=== PATIENT | female | born 1955 | race Caucasian/White ===

== ENCOUNTER 2016-12-10 08:11 | Observation (INO) | payer BC ==
[~2016-12-10 08:11] MED LIST: ceFAZolin 3 GM in D5W 100 ML IV ONE
[2016-12-10] MEDS ORDERED: THROMBIN (RECOMBINANT) 20,000 UNIT SPRAY TP ONE (08:39)
[2016-12-10] MEDS ORDERED: BUPIVACAINE 0.5% 30 ML SDV ONE (08:39)
[2016-12-10] MEDS ORDERED: MINERAL OIL 10 ML VIAL TP ONE (08:39)
[2016-12-10] MEDS ORDERED: CEFAZOLIN 2 GM/DEXTROSE/100 ML BAG IV ONE (08:57)
[2016-12-10] MEDS ORDERED: MIDAZOLAM 2 MG/2 ML VIAL ONE (10:07)
[2016-12-10] MEDS ORDERED: fentaNYL 100 MCG/2 ML INJ ONE ×2 (10:13→11:39)
[2016-12-10] MEDS ORDERED: LIDOCAINE 2% JELLY 5 ML TUBE ONE (10:14)
[2016-12-10] MEDS ORDERED: DEXAMETHASONE 4 MG/ML VIAL ONE (10:14)
[2016-12-10] MEDS ORDERED: LIDOCAINE 2% 100 MG/5 ML SYR ONE (10:14)
[2016-12-10] MEDS ORDERED: PROPOFOL/EMULSION 500 MG/50 ML BOTTLE IV ONE (10:14)
[2016-12-10] MEDS ORDERED: ONDANSETRON 4 MG/2 ML VIAL ONE (10:14)
[2016-12-10] MEDS ORDERED: HYDROCODONE/APAP 5/325 TAB PO PRN (12:01)
[2016-12-10] MEDS ORDERED: ACETAMINOPHEN 325 MG TAB PO PRN (12:01)
[2016-12-10] MEDS ORDERED: ONDANSETRON 4 MG/2 ML VIAL IVP PRN (12:01)
[2016-12-10] MEDS ORDERED: HYDROmorphONE/DILAUDID 1 MG/ML SYR IVP PRN (12:01)
[2016-12-10] MEDS ORDERED: D5W 1/2 NS W/ 20 KCl/L 1,000 ML IV SCH (12:15)
[2016-12-10] MEDS ORDERED: traMADol 50 MG TAB PO PRN (17:14)
[2016-12-10] MEDS ORDERED: ALBUTEROL 60 PUFFS/8 GM MDI IH PRN (17:14)
[2016-12-10] MEDS ORDERED: MONTELUKAST SODIUM 10 MG TAB PO SCH (18:00)
[2016-12-10] MEDS: metFORMIN HCL 500 MG TAB PO SCH (18:15)
[2016-12-10] MEDS: CYCLOSPORINE 0.05% 1 EACH BOX EACHEYE SCH (20:38)
[2016-12-10] MEDS: OXYCODONE/APAP 5/325 TAB PO PRN (20:42)
[2016-12-10] MEDS ORDERED: ATORVASTATIN CALCIUM 10 MG TAB PO SCH (21:00)
[2016-12-10] MEDS ORDERED: NON-FORMULARY NEW DRUG (Simvastatin [Zocor] 20 MG) PO SCH (21:00)
[2016-12-10] MEDS: FUROSEMIDE 20 MG TAB PO SCH (21:00)
[2016-12-10] MEDS: POTASSIUM CL 20 MEQ TAB PO SCH (21:00)
[2016-12-11 05:16] LABS: HEMATOCRIT 38.8 % (38.0-47.0); HEMOGLOBIN 12.9 g/dL (12.6-16.3)
[2016-12-11 05:29] LABS: ANION GAP 9 mEq/L (8-16); CALCIUM 8.9 mg/dL (8.5-10.4); CARBON DIOXIDE 26 mEq/l (22-31); CHLORIDE 102 mEq/L (97-110); CREATININE 0.6 mg/dL (0.6-1.0); GLOMERULAR FILTRATION RATE > 60; GLUCOSE 235 mg/dL (70-100); POTASSIUM 4.3 mEq/L (3.5-5.2); SODIUM 137 mEq/L (134-144)
[2016-12-11] MEDS: CYCLOSPORINE 0.05% 1 EACH BOX EACHEYE SCH (08:00)
[2016-12-11] MEDS: metFORMIN HCL 500 MG TAB PO SCH (08:07)
[2016-12-11] MEDS: FUROSEMIDE 20 MG TAB PO SCH ×2 (08:08→11:27)
[2016-12-11] MEDS: POTASSIUM CL 20 MEQ TAB PO SCH (08:09)
[2016-12-11 08:21] VITALS: RESP 16
[2016-12-11] MEDS ORDERED: LISINOPRIL/HCTZ 10/12.5 MG 1 EA TAB PO SCH (09:00)
[2016-12-11] MEDS ORDERED: NON-FORMULARY NEW DRUG (Loratadine [Claritin 10 Mg] 10 MG) PO SCH (09:00)
[2016-12-11] MEDS ORDERED: CETIRIZINE 10 MG TAB PO SCH (09:00)
[2016-12-11] MEDS ORDERED: BRIMONIDINE 0.1% 5 ML OPHT.BTL EACHEYE SCH (09:00)
[2016-12-11] MEDS ORDERED: MELOXICAM 15 MG PO SCH (09:00)
[2016-12-11] MEDS ORDERED: NON-FORMULARY NEW DRUG (Meloxicam [Meloxicam] 15 MG) PO SCH (09:00)
[2016-12-11] MEDS: OXYCODONE/APAP 5/325 TAB PO PRN (10:12)
[2016-12-11 11:21] VITALS: BP 120/67; PULSE 68; TEMP 98.4; O2SAT 94
--- NOTE | 2016-12-11 12:45 | SOAPPROG ---
SOAP Progress Note Assessment/Plan: Assessment: 61yo female s/p soft tissue graft RLE pain controlled, doing well overall PE awake alert comfortable RLE VAC in place, no surrounding erythema, no significant swelling. Plan: Home today if VAC can be covered. Pt does not need VAC changed, it will be left on for 7 days. will take home tramadol for pain, discussed with pt. 12/11/16 12:43 Objective: Vital Signs Temp Pulse Resp BP Pulse Ox 36.9 C 68 16 120/67 94 12/11/16 11:20 12/11/16 11:20 12/11/16 11:20 12/11/16 11:20 12/11/16 11:20 Laboratory Results 12/11/16 04:13 12/11/16 04:13 12/10/16 12/11/16 12/12/16 05:59 05:59 05:59 Intake Total 1000 Output Total 1125 400 Balance -125 -400 ICD10 Worksheet Patient Problems: Problems Problem Status Onset Surgery, elective Acute
--- NOTE | 2016-12-12 12:11 | GDS ---
[f rep st] DISCHARGE SUMMARY REASON FOR ADMISSION: Graft surgery for nonhealing wound. HOSPITAL COURSE: The patient is a pleasant 61-year-old female who had had a right ankle, lateral ma lleolus wound that was not healing for almost a year. She finally elected to undergo soft tissue gr aft surgery. A graft from her right upper thigh, the same leg, was used, and an incisional wound VA C was placed over the wound. The patient's hospital course was fairly unremarkable, although extensive paperwork was needed for t he wound VAC to be approved. Finally it was, and the patient was discharged home on 12/11/2016 with instructions to follow up in our office in 6-7 days. The wound VAC should be left on until that ti me. The patient was seen by Physical Therapy who also assisted in instructions on how to mobilize w ith the wound VAC in place. It is okay for the patient to be full weightbearing, but we asked that she limit her activity for this upcoming week as the graft is very delicate in nature. /[id number]/MODL
== END 2016-12-11 17:39 | disposition home or self-care (01) ==
LOC: FSGY 08:11 → F3E 12:01
PROVIDERS: ADMIT Surgery; ATTEND Surgery
PROC: 0HRKX74 Replacement of Right Lower Leg Skin with Autologous Tissue Substitute, Partial Thickness, External Approach (ICD-10-PCS; principal; 2016-12-10 09:45)
PROC: 0HBKXZX Excision of Right Lower Leg Skin, External Approach, Diagnostic (ICD-10-PCS; principal; 2016-12-10 09:45)
PROC: 2W1SX6Z Compression of Right Foot using Pressure Dressing (ICD-10-PCS; principal; 2016-12-10 09:45)
DX: T81.89XA Other complications of procedures, not elsewhere classified, initial encounter (principal); E66.01 Morbid (severe) obesity due to excess calories; Z68.43 Body mass index [BMI] 50.0-59.9, adult; I10 Essential (primary) hypertension
CPT/HCPCS: 15100; 27613; 97116; 97161; 97162; 97165; G0378; J0690; J1100; J2001; J2250; J2405; J2704; J3010

== ENCOUNTER 2017-01-26 08:45 | Day surgery (SDC) | payer BC ==
[~2017-01-26 08:45] MED LIST changes: +BUPIVACAINE 0.5% 30 ML SDV ONE
[2017-01-26] MEDS ORDERED: MIDAZOLAM 2 MG/2 ML VIAL ONE (09:16)
[2017-01-26] MEDS ORDERED: CEFAZOLIN 2 GM/DEXTROSE/100 ML BAG IV ONE (09:35)
[2017-01-26] MEDS ORDERED: fentaNYL 100 MCG/2 ML INJ ONE ×3 (09:44→13:02)
[2017-01-26] MEDS ORDERED: ONDANSETRON 4 MG/2 ML VIAL ONE (09:47)
[2017-01-26] MEDS ORDERED: LR 1,000 ML IV ONE (09:49)
[2017-01-26] MEDS ORDERED: LIDOCAINE 2% 5 ML SDV ONE (09:53)
[2017-01-26] MEDS ORDERED: PROPOFOL 200 MG/20 ML VIAL ONE (09:54)
[2017-01-26 10:01] LABS: ANION GAP 12 mEq/L (8-16); CALCIUM 9.2 mg/dL (8.5-10.4); CARBON DIOXIDE 25 mEq/l (22-31); CHLORIDE 105 mEq/L (97-110); CREATININE 0.6 mg/dL (0.6-1.0); GLOMERULAR FILTRATION RATE > 60; GLUCOSE 242 mg/dL (70-100); POTASSIUM 4.2 mEq/L (3.5-5.2); SODIUM 142 mEq/L (134-144)
[2017-01-26] MEDS ORDERED: CALCIUM CHLORIDE 1 GM/10 ML INJ ONE (10:18)
[2017-01-26] MEDS ORDERED: THROMBIN (BOVINE) 5,000 UNIT VIAL TP ONE (10:18)
[2017-01-26] MEDS ORDERED: KETOROLAC 30 MG/1 ML SDV ONE (10:27)
[2017-01-26] MEDS ORDERED: INSULIN REGULAR HUMAN 100 UNIT/ML ONE (10:57)
[2017-01-26] MEDS ORDERED: PHENYLEPHRINE HCL 100 MCG/ML SYR ONE (12:53)
--- NOTE | 2017-01-26 19:21 | GOP ---
[f rep st] OPERATIVE REPORT DATE OF OPERATION: 01/26/2017 SURGEON: Dario Vu MD BULK FILLER: ELENA Toussaint ANESTHESIOLOGIST: Diana Ma DO PREOPERATIVE DIAGNOSIS: Right lateral malleolar ulcer. POSTOPERATIVE DIAGNOSIS: Right lateral malleolar ulcer. PROCEDURE PERFORMED: Patient was taken to the operating room where she received satisfactory general endotracheal anesthesia by Dr. Ma. She was prepped and draped in the usual sterile fashion. The scar tissue in the area was excised down to fresh bleeding tissue. There were some pockets of skin in the area but mostly fibrous tissue. The area was fully debrided, then anesthetized with 0.5% Marcaine, and then a layer of platelet-rich plasma was placed over the wound and secured in place with an occlusive dressing. She tolerated procedure well. She was taken to the recovery room in good condition. There were no complications. FINDINGS: Necrotic superficial tissue and a very fibrous ulcer base DESCRIPTION OF PROCEDURE: PROCEDURES: Excisional debridement and then placement of platelet-rich plasma and wound dressing. /[id number]/MODL MTDD
== END 2017-01-26 12:30 | disposition home or self-care (01) ==
LOC: FSGY 08:45
PROVIDERS: ATTEND Surgery
PROC: 0HRKX74 Replacement of Right Lower Leg Skin with Autologous Tissue Substitute, Partial Thickness, External Approach (ICD-10-PCS; principal; 2017-01-26 10:15)
PROC: 0HBKXZX Excision of Right Lower Leg Skin, External Approach, Diagnostic (ICD-10-PCS; principal; 2017-01-26 10:15)
DX: L97.313 Non-pressure chronic ulcer of right ankle with necrosis of muscle (principal); L03.116 Cellulitis of left lower limb; E11.9 Type 2 diabetes mellitus without complications; E78.5 Hyperlipidemia, unspecified; J45.909 Unspecified asthma, uncomplicated; G25.81 Restless legs syndrome; G47.33 Obstructive sleep apnea (adult) (pediatric); I10 Essential (primary) hypertension; E66.01 Morbid (severe) obesity due to excess calories; Z68.43 Body mass index [BMI] 50.0-59.9, adult
CPT/HCPCS: 0232T; 11042; J0690; J1815; J1885; J2250; J2370; J2405; J2704; J3010

== ENCOUNTER 2017-03-11 05:39 | Observation (INO) | payer BC ==
[2017-03-11] MEDS ORDERED: ceFAZolin 2 GM/DEXTROSE 100 ML IV ONE (06:06)
[2017-03-11] MEDS ORDERED: LIDOCAINE 1% 2 ML INJ ID PRN (06:09)
[2017-03-11] MEDS ORDERED: LR 1,000 ML IV ONE (06:09)
[2017-03-11] MEDS ORDERED: BUPIVACAINE 0.5% 30 ML SDV ONE (06:36)
[2017-03-11] MEDS ORDERED: THROMBIN (BOVINE) 20,000 UNIT SPRAY TP ONE (06:36)
[2017-03-11] MEDS ORDERED: MINERAL OIL 10 ML VIAL ONE (06:37)
[2017-03-11] MEDS ORDERED: MIDAZOLAM 2 MG/2 ML VIAL IVP ONE (07:03)
[2017-03-11] MEDS ORDERED: MIDAZOLAM 2 MG/2 ML VIAL ONE (07:03)
--- NOTE | 2017-03-11 07:07 | PDANEPAE ---
ANE Past Medical History - Cardiovascular History Hx Hypertension: Yes Hx Arrhythmias: No Hx Chest Pain: No Hx Coronary Artery / Peripheral Vascular Disease: No Hx CHF / Valvular Disease: No Hx Palpitations: No Cardiovascular History Comment: HYPERLIPIDEMIA - Pulmonary History Hx COPD: No Hx Asthma/Reactive Airway Disease: Yes Hx Recent Upper Respiratory Infection: Yes Hx Oxygen in Use at Home: No Hx Sleep Apnea: Yes Sleep Apnea Screening Result - Last Documented: Positive Pulmonary History Comment: ASTHMA-ALTITUDE RELATED. STEVIE- CPAP INSTRUCTED TO BRING DOS - Neurologic History Hx Cerebrovascular Accident: No Hx Seizures: No Hx Dementia: No - Endocrine History Hx Diabetes: Yes Obesity: yes Endocrine History Comment: PRE-DIABETIC ON METFORMIN - Renal History Hx Renal Disorders: No - Liver History Hx Hepatic Disorders: No Hepatic History Comment: HX GALLSTONES - Neurological & Psychiatric Hx Hx Neurological and Psychiatric Disorders: No - Cancer History Hx Cancer: No - Congenital Disorder History Hx Congenital Disorders: No - GI History Hx Gastrointestinal Disorders: Yes Gastrointestinal History Comment: INTERMITTENT HEARTBURN USES OTC TUMS - Other Health History Other Health History: RT LOWER EXT INJURY . UNRESOLVED SKIN STAYING INTACT. DYSHIDROTIC ECZEMA. OSTEOARTHRITIS-hands,ft, hips,ankles, back. Alphagan removes eye redness.(redness from Restasis) - Chronic Pain History Chronic Pain: No - Surgical History Prior Surgeries: R ankle debridement 01-20. R ankle FTSG- 12-21. UMBILICAL HERNIA 07/2015. CHOLECYSTECTOMY. HYSTERECTOMY. ANKLE SURG R 4X. R SHOULDER. CARPAL TUNNEL SURG R 7 L. CATARACT SURG 2015-bilat ANE Review of Systems - Exercise capacity METS (RN): 4 METS ANE Patient History - Allergies Allergies/Adverse Reactions: adhesive Allergy (Verified 03/10/17 13:31) codeine Allergy (Verified 03/10/17 13:31) Vomiting hydrocodone bitartrate [From Vicodin] Allergy (Verified 03/10/17 13:31) Other-Enter Comments oxycodone [From Percocet] Allergy (Verified 03/10/17 13:31) Vomiting thimerosal Allergy (Verified 03/10/17 13:31) Other-Enter Comments - Home Medications Home Medications: Herbals/Supplements -Info Only 1 ea PO DAILY 12/08/16 [Last Taken 03/07/17 10:00 ] Lisinopril/Hctz 10/12.5 mg [Zestoretic/Prinzide 12.5MG (*)] 1 ea PO DAILY 12/21 [Last Taken 03/10/17 10:00] Loratadine [Claritin 10 mg] 10 mg PO DAILY 12/08/16 [Last Taken 03/11/17 05:00] Meloxicam 15 mg PO DAILY 12/08/16 [Last Taken 03/08/17 10:00] Montelukast Sodium [Singulair 10 mg (*)] 10 mg PO DAILY@1800 12/08/16 [Last Taken 03/10/17 22:00] Potassium Cl [Klor-Con 20 meq (*)] 20 meq PO DAILY 12/08/16 [Last Taken 10:00] Simvastatin [Zocor] 20 mg PO HS 12/08/16 [Last Taken 03/10/17 00:00] metFORMIN HCL [Glucophage 500 mg (*)] 500 mg PO BIDMEAL 12/08/16 [Last Taken 12/21 10:00] traMADol [Ultram 50 mg (*)] 1 - 2 tab PO QID PRN 12/08/16 [Last Taken 03/10/17 03:00] Brimonidine 0.1% [ALPHAGAN P 0.1% (*)] 1 drops EACHEYE DAILY 12/10/16 [Last Taken 03/10/17 10:30] Cholecalciferol Vit D3 [Vitamin D3 (*)] 5,000 units PO DAILY 12/10/16 [Last Taken 03/07/17 10:00] Furosemide [Lasix 20 MG (*)] 20 mg PO BID@08,16 12/10/16 [Last Taken 03/08/17 10 :00] cycloSPORINE 0.05% [Restasis Opht Drops(*)] 1 drop EACHEYE BID 12/10/16 [Last Taken 03/10/17 22:00] rOPINIRole HCL [Requip 1mg (*)] 1 mg PO HS PRN 12/10/16 [Last Taken 02/17/17] - NPO status NPO Since - Liquids (Date): 03/10/17 NPO Since - Liquids (Time): 23:45 NPO Since - Solids (Date): 03/10/17 NPO Since - Solids (Time): 23:45 - Smoking Hx Smoking Status: Never smoked - Family Anes Hx Family Hx Anesthesia Complications: NONE ANE Labs/Vital Signs - Vital Signs Blood Pressure: 155/95 Heart Rate: 93 Respiratory Rate: 15 O2 Sat (%): 93 Height: 157.48 cm Weight: 124.738 kg
[2017-03-11 07:18] LABS: ANION GAP 11 mEq/L (8-16); CALCIUM 9.2 mg/dL (8.5-10.4); CARBON DIOXIDE 24 mEq/l (22-31); CHLORIDE 107 mEq/L (97-110); CREATININE 0.6 mg/dL (0.6-1.0); GLOMERULAR FILTRATION RATE > 60; GLUCOSE 204 mg/dL (70-100); POTASSIUM 3.8 mEq/L (3.5-5.2); SODIUM 142 mEq/L (134-144)
--- NOTE | 2017-03-11 07:21 | PDHPUP ---
History & Physical Update H&P update statement: This history and physical update is based on an assessment of the patient which was completed after admission or registration (within 24 hours), but prior to the surgery/procedure. H&P update: H&P reviewed & patient examined, no change in patient's condition since H&P completed
[2017-03-11] MEDS ORDERED: ONDANSETRON 4 MG/2 ML VIAL ONE (07:22)
[2017-03-11] MEDS ORDERED: PROPOFOL 200 MG/20 ML VIAL ONE (07:22)
[2017-03-11] MEDS ORDERED: fentaNYL 100 MCG/2 ML INJ ONE ×3 (07:22→08:24)
[2017-03-11] MEDS ORDERED: LIDOCAINE 2% 5 ML SDV ONE (07:22)
[2017-03-11] MEDS ORDERED: LR 500 ML IV PRN (08:07)
[2017-03-11] MEDS ORDERED: ONDANSETRON 4 MG/2 ML VIAL IVP PRN ×2 (08:07→08:21)
[2017-03-11] MEDS ORDERED: ACETAMINOPHEN 500 MG TAB PO PRN (08:07)
[2017-03-11] MEDS ORDERED: LABETALOL HCL 50 MG/10 ML SYR IVP PRN (08:07)
[2017-03-11] MEDS ORDERED: NALOXONE HCL 0.4 MG/ML INJ IVP PRN (08:07)
[2017-03-11] MEDS ORDERED: ALBUTEROL 3 ML DEYVIAL IH PRN (08:07)
--- NOTE | 2017-03-11 08:19 | POSTOPPROG ---
Post Op Note Date of Operation: 03/11/17 Surgeon: Dario Vu Anesthesiologist: [email or web address] Anesthesia: GET(General Endotracheal) Pre-op Diagnosis: nonhealing rt lateral malleolar ulcer Post-op Diagnosis: same Indication: nonhealing Procedure: stsg and debridement rt leg ulcer Findings: adequate granulation bed Inf/Abcess present in the surg proc area at time of surgery?: Yes Depth: Superfical (Skin SQ) EBL: Minimal Complications: 0 Drains: Wound Vac
[2017-03-11] MEDS: fentaNYL 100 MCG/2 ML INJ IVP PRN ×3 (08:20→08:30)
[2017-03-11] MEDS ORDERED: HYDROmorphONE/DILAUDID 1 MG/ML SYR IVP PRN (08:21)
[2017-03-11] MEDS ORDERED: traMADol 50 MG TAB PO PRN ×2 (08:22→08:24)
[2017-03-11] MEDS: HYDROmorphONE/DILAUDID 1 MG/ML SYR IVP PRN ×6 (08:25→09:35)
[2017-03-11] MEDS ORDERED: HYDROmorphONE/DILAUDID 1 MG/ML SYR ONE ×2 (08:29→09:08)
--- NOTE | 2017-03-11 08:41 | POSTANESTH ---
Post Anesthetic Evaluation Cardiovascular Status: Normal, Stable Respiratory Status: Normal, Stable Level of Consciousness/Mental Status: Can Participate in Eval Pain Control: Adequate, Prn Tx Ordered Nausea/Vomiting Control: Adequate, Prn Tx Ordered Complications Possibly Related to Anesthesia: None Noted
[2017-03-11] MEDS ORDERED: BRIMONIDINE 0.1% 5 ML OPHT.BTL EACHEYE SCH (09:00)
[2017-03-11] MEDS ORDERED: NON-FORMULARY NEW DRUG (Meloxicam [Meloxicam] 15 MG) PO SCH (09:00)
[2017-03-11] MEDS ORDERED: NON-FORMULARY NEW DRUG (Loratadine [Claritin 10 Mg] 10 MG) PO SCH (09:00)
[2017-03-11] MEDS ORDERED: CYCLOSPORINE 0.05% 1 EACH BOX EACHEYE SCH ×2 (09:00→21:00)
[2017-03-11] MEDS ORDERED: Herbals/Supplements -Info Only PO SCH (09:00)
[2017-03-11] MEDS: D5W 1/2 NS W/ 20 KCl/L 1,000 ML IV SCH ×2 (10:32→23:19)
[2017-03-11] MEDS: CHOLECALCIFEROL VIT D3 1,000 UNITS TAB PO SCH (12:51)
[2017-03-11] MEDS: CETIRIZINE 10 MG TAB PO SCH (12:51)
[2017-03-11] MEDS: LISINOPRIL/HCTZ 10/12.5 MG 1 EA TAB PO SCH (12:52)
[2017-03-11] MEDS: POTASSIUM CL 20 MEQ TAB PO SCH (13:16)
[2017-03-11] MEDS: FUROSEMIDE 20 MG TAB PO SCH (14:47)
[2017-03-11] MEDS: KETOROLAC 15 MG/1 ML SDV IVP SCH ×3 (14:47→23:20)
[2017-03-11] MEDS: metFORMIN HCL 500 MG TAB PO SCH (18:03)
[2017-03-11] MEDS: MONTELUKAST SODIUM 10 MG TAB PO SCH ×2 (18:04→21:53)
--- NOTE | 2017-03-11 19:09 | SOAPPROG ---
SOAP Progress Note Assessment/Plan: Assessment: WOUND OKAY/DONOR SITE OKAY/COMFORTABLE Plan: HOME IN THE A.M. WITH WOUND VAC 03/11/17 19:08 Objective: Vital Signs Temp Pulse Resp BP Pulse Ox 36.4 C 74 15 133/75 H 94 03/11/17 15:37 03/11/17 15:37 03/11/17 15:37 03/11/17 15:37 03/11/17 15:37 Laboratory Results 03/11/17 06:50 03/10/17 03/11/17 03/12/17 05:59 05:59 05:59 Intake Total 1587.3 Output Total 700 Balance 887.3 ICD10 Worksheet Patient Problems: Problems Problem Status Onset Surgery, elective Acute
[2017-03-11] MEDS ORDERED: NON-FORMULARY NEW DRUG (Simvastatin [Zocor] 20 MG) PO SCH (21:00)
[2017-03-11] MEDS ORDERED: ATORVASTATIN CALCIUM 10 MG TAB PO SCH (21:00)
[2017-03-11] MEDS: CYCLOSPORINE 0.05% 1 EACH BOX EACHEYE SCH (21:56)
[2017-03-12] MEDS: KETOROLAC 15 MG/1 ML SDV IVP SCH (05:49)
[2017-03-12 07:28] VITALS: BP 122/69; PULSE 72; RESP 12; TEMP 97.9; O2SAT 98
[2017-03-12] MEDS: metFORMIN HCL 500 MG TAB PO SCH (08:08)
[2017-03-12] MEDS: FUROSEMIDE 20 MG TAB PO SCH (08:08)
[2017-03-12] MEDS ORDERED: MELOXICAM 15 MG PO SCH (09:00)
[2017-03-12] MEDS ORDERED: BRIMONIDINE 0.1% 5 ML OPHT.BTL EACHEYE SCH ×2 (09:00)
[2017-03-12] MEDS: LISINOPRIL/HCTZ 10/12.5 MG 1 EA TAB PO SCH (11:05)
[2017-03-12] MEDS: CHOLECALCIFEROL VIT D3 1,000 UNITS TAB PO SCH (11:05)
[2017-03-12] MEDS: CETIRIZINE 10 MG TAB PO SCH (11:05)
[2017-03-12] MEDS: CYCLOSPORINE 0.05% 1 EACH BOX EACHEYE SCH (11:06)
[2017-03-12] MEDS: POTASSIUM CL 20 MEQ TAB PO SCH (11:09)
--- NOTE | 2017-03-17 21:44 | GOP ---
[f rep st] OPERATIVE REPORT DATE OF OPERATION: 03/11/2017 SURGEON: Dario Vu MD GRAVITY METER OBSERVER: Beth Jackson, PAC. PREOPERATIVE DIAGNOSIS: Chronic lateral malleolar right leg ulcer. POSTOPERATIVE DIAGNOSIS: Chronic lateral malleolar right leg ulcer. PROCEDURE PERFORMED: 1. Wound debridement. 2. Split thickness skin graft. FINDINGS: Patient was found to have a reasonably adequate granulation base in the ulcer base, which measured 5 x 2 cm. ESTIMATED BLOOD LOSS: Negligible. DESCRIPTION OF PROCEDURE: Patient was taken to the operating room where she received satisfactory g eneral endotracheal anesthesia, placed in supine position, prepped and draped in the usual sterile f ashion. The ulcer base was sharply debrided where necessary. Good bleeding granulation tissue was present. Using the dermatome, a split thickness 16 Maxon skin graft was taken from the anterior thi gh and was meshed at 1-1/2 to 1 and then placed over the defect and anchored in place with skin stap les. The donor site was infiltrated with 0.5% Marcaine with epinephrine and covered with a Mepilex dressing. The skin graft site was then covered with Xeroform gauze and a wound VAC was placed. All layers were infiltrated with Marcaine. She tolerated the procedure well. She was taken to the recovery room in good condition. There were no complications. /[id number]/MODL
== END 2017-03-12 12:10 | disposition home or self-care (01) ==
LOC: F3E 05:39
PROVIDERS: ADMIT Surgery; ATTEND Surgery
PROC: 0HBHXZZ Excision of Right Upper Leg Skin, External Approach (ICD-10-PCS; principal; 2017-03-11 07:15)
PROC: 0HRKX74 Replacement of Right Lower Leg Skin with Autologous Tissue Substitute, Partial Thickness, External Approach (ICD-10-PCS; principal; 2017-03-11 07:15)
DX: L98.499 Non-pressure chronic ulcer of skin of other sites with unspecified severity (principal); G47.33 Obstructive sleep apnea (adult) (pediatric); M15.9 Polyosteoarthritis, unspecified; L30.1 Dyshidrosis [pompholyx]
CPT/HCPCS: 15100; G0378; J0690; J1170; J1885; J2250; J2405; J2704; J3010

== ENCOUNTER → 2017-06-29 | Outpatient (CLI) | payer BC | LOC: FIMAGING 07:26 | PROVIDERS: ATTEND Family Medicine | DX: Z12.31 Encounter for screening mammogram for malignant neoplasm of breast (principal) | CPT/HCPCS: G0202 ==

== ENCOUNTER → 2018-09-01 | Outpatient (CLI) | payer BC | LOC: FIMAGING 10:07 | PROVIDERS: ATTEND Family Medicine | DX: Z12.31 Encounter for screening mammogram for malignant neoplasm of breast (principal) ==